=== PATIENT | male | born 2000 | race Caucasian/White ===

== ENCOUNTER 2018-05-15 21:07 | Emergency (ER) | payer BC ==
[2018-05-15 21:20] VITALS: BP 145/93
--- NOTE | 2018-05-15 21:22 | UC ---
Cardiac HPI - HPI Summary HPI Summary: 18-year-old male presents with 5 day history of intermittent chest pain. States pain is typically left sided although occasionally he has had some right- sided chest pain as well. Describes the pain as sharp. Nonradiating. Pain is typically occurs after he smokes marijuana although he has had a couple of episodes unrelated to smoking. He states that he is a heavy daily marijuana smoker but has not smoked since yesterday. Denies any other illegal drug use. Denies fever, chills, rash, weakness, dizziness, diaphoresis, shortness of breath, cough, palpitations, abdominal pain, nausea, or vomiting. - History of Current Complaint Chief Complaint: UCChestPain Stated Complaint: CHEST PAIN Time Seen by Provider: 05/15/18 21:13 Hx Obtained From: Patient Pain Intensity: 5 - Allergy/Home Medications Allergies/Adverse Reactions: Allergies Allergy/AdvReac Type Severity Reaction Status Date / Time No Known Allergies Allergy Verified 05/15/18 21:20 Home Medications: Home Medications NK [No Home Medications Reported] 05/15/18 [History Confirmed 05/15/18] PMH/Surg Hx/FS Hx/Imm Hx Previously Healthy: Yes Psychological History: Anxiety - Surgical History Surgical History: None - Family History Known Family History: Negative: Cardiac Disease, Hypertension, Diabetes, Respiratory Disease - Social History Occupation: Student Lives: With Family Alcohol Use: Occasionally Substance Use Type: Marijuana - Heavy daily use Smoking Status (MU): Current Some Day Smoker Have You Smoked in the Last Year: Yes - Immunization History Vaccination Up to Date: Yes Review of Systems All Other Systems Reviewed And Are Negative: Yes Constitutional: Negative: Fever, Chills Skin: Negative: Rash ENT: Negative: Sore Throat, Ear Ache, Nasal Discharge, Sinus Congestion, Sinus Pain/Tenderness Respiratory: Negative: Shortness Of Breath, Cough Cardiovascular: Positive: Chest Pain. Negative: Palpitations Gastrointestinal: Negative: Abdominal Pain, Vomiting, Diarrhea, Nausea Neurological: Positive: Negative Physical Exam - Summary Physical Exam Summary: GENERAL APPEARANCE: Well developed, well nourished, alert and cooperative, and appears to be in no acute distress. EYES: Conjunctiva clear. No discharge. PERRL, EOM intact. Vision is grossly intact. EARS: External auditory canals and tympanic membranes clear, hearing grossly intact. NOSE: No nasal congestion or discharge. THROAT: Oral cavity and pharynx normal. No inflammation, swelling, exudate, or lesions. Teeth and gingiva in good general condition. NECK: Neck supple, non-tender without lymphadenopathy. CARDIAC: Normal S1 and S2. No S3, S4 or murmurs. Rhythm is regular. There is no peripheral edema, cyanosis or pallor. Extremities are warm and well perfused. Capillary refill is less than 2 seconds. LUNGS: Clear to auscultation and percussion without rales, rhonchi, wheezing or diminished breath sounds. ABDOMEN: Positive bowel sounds. Soft, nondistended, nontender. No guarding or rebound. No masses or hepatosplenomegally. MUSKULOSKELETAL: ROM intact to all extremities. No joint erythema or tenderness. Normal muscular development. Normal gait. SKIN: Skin normal color, texture and turgor with no lesions or eruptions. Triage Information Reviewed: Yes Vital Signs: Initial Vital Signs Temp 98.2 F 05/15/18 21:16 Pulse 82 05/15/18 21:16 Resp 20 05/15/18 21:16 BP 145/93 05/15/18 21:16 Pulse Ox 100 05/15/18 21:16 Vital Signs Reviewed: Yes Diagnostics - EKG Cardiac Rate: NL - Rate 84 Cardiac Rhythm: Sinus: Normal Ectopy: None ST Segment: Normal Summary of EKG Findings: NSR without ectopy or ST elevation. No previous for comparison. - Assessment/Plan Course Of Treatment: 18-year-old male presents with 5 day history of intermittent chest pain. States pain is typically left sided although occasionally he has had some right-sided chest pain as well. Describes the pain as sharp. Nonradiating. Pain is typically occurs after he smokes marijuana although he has had a couple of episodes unrelated to smoking. He states that he is a heavy daily marijuana smoker but has not smoked since yesterday. Denies any other illegal drug use. Denies fever, chills, rash, weakness, dizziness, diaphoresis, shortness of breath, cough, palpitations, abdominal pain, nausea, or vomiting. Febrile. Vital signs stable. Exam was unremarkable. Twelve-lead EKG showed normal sinus rhythm without ectopy or ST elevation. Suspect this may be a pleuritic type chest pain related to his heavy marijuana smoking. He was counseled to stop smoking and to follow-up with his primary care provider within one week especially if symptoms persist. Warning symptoms requiring immediate evaluation in the emergency room were reviewed with patient. He verbalizes understanding and agrees with plan of care. - Differential Diagnoses - Chest Pain Differential Diagnosis/HQI/PQRI: ACS, Chest Wall, Lower Respiratory Infection, Other: - Pleurisy - Clinical Impression Provider Diagnosis: Chest pain Discharge - Sign-Out/Discharge Documenting (check all that apply): Patient Departure All imaging exams completed and their final reports reviewed: No Studies - Discharge Plan Condition: Stable Disposition: HOME Patient Education Materials: Chest Pain (ED) Referrals: No Primary Care Phys,NOPCP [Primary Care Provider] - [facility] [place] [facility]IAN REFERRAL [Outside] Additional Instructions: The ECG performed in the clinic tonight was normal and your exam was unremarkable. I suspect that the chest pain is related to your marijuana smoking. Stop smoking marijuana. Follow up with you primary care provider in 7 days if symptoms persist. I have provided you the number to the [facility] Physician Referral Service if you need assistance with establishing with a primary care provider. Seek immediate medical attention in the emergency room if have persistent chest pain, shortness of breath, you become weak or dizzy, feel as if your heart is racing or skipping beats, or any worsening of symptoms. - Billing Disposition and Condition Condition: STABLE Disposition: Home
== END 2018-05-15 21:40 | disposition home or self-care (01) ==
LOC: UCEAST 21:07
DX: R07.9 Chest pain, unspecified (principal); F17.290 Nicotine dependence, other tobacco product, uncomplicated
CPT/HCPCS: 93005; 99201; G0463